=== PATIENT | male | born 1990 | race Caucasian/White ===

== ENCOUNTER 2018-09-21 11:09 | Emergency (ER) | payer OTHER ==
[2018-09-21 11:17] VITALS: BP 139/97; PULSE 115; RESP 18; TEMP 97.7
[2018-09-21] MEDS ORDERED: LIDOCAINE 1% INJ 10MG/ML (20 ML MDV) SQ STA (12:24)
--- NOTE | 2018-09-21 12:26 | ED ---
General Adult HPI - General Chief complaint: Wound/Laceration Stated complaint: nose lac-[facility] Time Seen by Provider: 09/21/18 12:17 Source: patient, RN notes reviewed Mode of arrival: ambulatory Limitations: no limitations - History of Present Illness Initial comments: Patient is a 28-year-old male presenting to the emergency room today with a chief complaint of laceration to his nose. He does admit that he was at work and a piece of sheet metal fell down hitting on the bridge of the nose causing a laceration. He states tetanus is up-to-date. Patient states he was able to the bleeding to stop. He denies any other complaints or symptoms. Patient denies any recent fever, chills, shortness of breath, chest pain, back pain, abdominal pain, nausea or vomiting, headaches or visual changes, or any other complaints. - Related Data Home Medications Medication Instructions Recorded Confirmed No Known Home Medications 09/21/18 09/21/18 Allergies Allergy/AdvReac Type Severity Reaction Status Date / Time No Known Allergies Allergy Verified 09/21/18 12:40 Review of Systems ROS Statement: Those systems with pertinent positive or pertinent negative responses have been documented in the HPI. ROS Other: All systems not noted in ROS Statement are negative. Past Medical History Past Medical History: No Reported History History of Any Multi-Drug Resistant Organisms: None Reported Additional Past Surgical History / Comment(s): hand surgery Past Psychological History: No Psychological Hx Reported Smoking Status: Never smoker Past Alcohol Use History: Occasional Past Drug Use History: None Reported General Exam - General Exam Comments Initial Comments: General: The patient is awake and alert, in no distress, and does not appear acutely ill. Eye: Pupils are equal, round and reactive to light, extra-ocular movements are intact. No nystagmus. There is normal conjunctiva bilaterally. No signs of icterus. Ears, nose, mouth and throat: There are moist mucous membranes and no oral lesions. No septal hematoma. Neck: The neck is supple Musculoskeletal: Normal ROM, no tenderness. Strength 5/5. Sensation intact. Pulses equal bilaterally 2+. Neurological: A&O x 3. CN II-XII intact, There are no obvious motor or sensory deficits. Coordination appears grossly intact. Speech is normal. Skin: No rash. Patient does have a 1 cm linear laceration running angle to the bridge of the nose just to the right side of midline. No active bleeding at this time. Psychiatric: Cooperative, appropriate mood & affect, normal judgment. Limitations: no limitations Course Vital Signs 09/21/18 11:14 Temperature 97.7 F Pulse Rate 115 H Respiratory 18 Rate Blood Pressure 139/97 O2 Sat by Pulse 100 Oximetry Procedures - Procedures Initial comment: 1.5 cm linear laceration across the bridge of the nose. No active bleeding. The skin was anesthetized with 1% lidocaine. The laceration was then cleansed with and irrigated with normal saline. The wound was inspected, and there was no evidence of injury to deep structures. No foreign body was noted in the wound. A total of 5 skin sutures were placed utilizing 6-0 nylon. Medical Decision Making - Medical Decision Making Patient laceration close to the emergency room. His tetanus is up-to-date. Patient will be discharged home. Disposition Clinical Impression: Laceration Disposition: HOME SELF-CARE Condition: Good Instructions: Laceration (DC) Additional Instructions: Please return to the emergency room in 5 days to have sutures removed. Please watch for any signs of infection which may include increased pain, swelling, redness, fever or chills. Please return to emergency room for any signs of infection do occur. Please use clean soap and water over the area to prevent scabbing over your stitches. Please leave wound covered for the first 24 hours and then leave wound open to air. Please return to the emergency room for any other concerns. Is patient prescribed a controlled substance at d/c from ED?: No Referrals: None,Stated [Primary Care Provider] - 1-2 days Time of Disposition: 13:13
== END 2018-09-21 13:26 | disposition home or self-care (01) ==
LOC: EC 11:09
DX: S01.21XA Laceration without foreign body of nose, initial encounter (principal); W20.8XXA Other cause of strike by thrown, projected or falling object, initial encounter; Y92.69 Other specified industrial and construction area as the place of occurrence of the external cause; Y99.0 Civilian activity done for income or pay
CPT/HCPCS: 99282; 12011; J2001